=== PATIENT | female | born 1980 ===

== ENCOUNTER 2022-07-19 07:10 | Day surgery (SDC) | payer BC ==
[~2022-07-19 07:10] MED LIST: Ketorolac 30 MG/ML SDV ONE; Lactated Ringers 1,000 ML IV SCH; Lidocaine 1% 0 ML ONE; Lidocaine 1%/Sod Bicarbonate in NS 8.4% 1 ML Syringe IDERM PRN; Midazolam 1 MG/ML 2 ML SDV ONE; Ondansetron 4 MG/2 ML SDV ONE; Propofol 200 MG/20 ML SDV ONE; Rocuronium 50 MG/5 ML Vial ONE; Sodium Chloride 0.9% 10 ML Syringe FLUSH PRN; Sodium Chloride 0.9% 10 ML Syringe FLUSH SCH; ceFAZolin 2 GM Vial ONE; fentaNYL 100 MCG/2 ML SDV ONE
[2022-07-19] MEDS ORDERED: Lidocaine 1% 5 ML VIAL ONE ×2 (07:26→09:00)
[2022-07-19] MEDS ORDERED: Dexamethasone 4 MG/ML 5 ML MDV ONE (07:33)
[2022-07-19] MEDS ORDERED: Sugammadex Sodium 200 MG/2 ML VIAL ONE (07:51)
[2022-07-19] MEDS ORDERED: Scopolamine 1.5 MG Transdermal Patch TOP ONE (08:54)
[2022-07-19] MEDS ORDERED: ePHEDrine 50 MG/ML SDV ONE (08:57)
[2022-07-19] MEDS ORDERED: Phenylephrine HCl In 0.9% NaCl 1 MG/10 ML Vial ONE (09:00)
[2022-07-19] MEDS: Bupivacaine 0.5% 30 ML SDV ONE ×2 (09:00→09:14)
[2022-07-19] MEDS ORDERED: HYDROmorphone 0.5 MG/0.5 ML Syringe ONE (09:07)
[2022-07-19] MEDS: Bupivacaine 0.25%/EPINEPHrine 1:200,000 30 ML SDV ONE ×2 (09:13→09:15)
[2022-07-19] MEDS ORDERED: traMADol 50 MG Tab PO PRN (10:33)
[2022-07-19 12:35] VITALS: BP 108/68; PULSE 75
== END 2022-07-19 11:55 | disposition home or self-care (01) ==
LOC: JD.SDS 07:10
PROVIDERS: ATTEND Obstetrics & Gynecology
DX: N94.6 Dysmenorrhea, unspecified (principal); N92.0 Excessive and frequent menstruation with regular cycle; J30.9 Allergic rhinitis, unspecified; E05.00 Thyrotoxicosis with diffuse goiter without thyrotoxic crisis or storm; E83.51 Hypocalcemia; E66.9 Obesity, unspecified; F17.210 Nicotine dependence, cigarettes, uncomplicated; Z79.899 Other long term (current) drug therapy; Z79.890 Hormone replacement therapy; Z98.890 Other specified postprocedural states; Z68.27 Body mass index [BMI] 27.0-27.9, adult; Z88.5 Allergy status to narcotic agent
CPT/HCPCS: 36415; 80053; 81003; 81025; 85025; 86850; 86900; 86901; A9270-GY; J0690; J1100; J1170; J1885; J2250; J2405; J2704; J3010; J3490; J7120